=== PATIENT | male | born 1975 | race Caucasian/White ===

== ENCOUNTER 2017-06-12 21:40 | Emergency (ER) | payer BC ==
[~2017-06-12] VITALS: Ht 177.8 cm; Wt 130.0 kg
[2017-06-12 21:43] VITALS: BP 192/91; PULSE 108; RESP 24; TEMP 96.7; O2SAT 100
--- NOTE | 2017-06-12 21:50 | PD ---
HPI . left sided back pain Chief Complaint: Flank/Kidney Pain Time Seen by Provider: 21:50 Travel History International Travel<30 days: No Contact w/Intl Traveler<30days: No Traveled to known affect area: No History of Present Illness HPI 41-year-old male with history of hypertension and nephrolithiasis here with sudden onset of left-sided back pain that started about an hour ago. Patient says that he has 10/10 pain in the left lower back associated with some decreased urinary output. He does believe that he may have a kidney stone as he has had them in the past. He also reports some left-sided testicular pain that also started around the same time. He says he feels some pressure upon urinating,, however denies dysuria or penile discharge. He is accompanied by his . PFSH Past Medical History Kidney Stones: Yes Social History Alcohol Use: Yes Tobacco Use: No Allergies-Medications (Allergen,Severity, Reaction): Coded Allergies: No Known Allergies (Unverified , 06/12/17) Reported Meds & Prescriptions Reported Meds & Active Scripts Active Zofran Odt (Ondansetron Odt) 4 Mg Tab 4 Mg SL Q6HR PRN Percocet (Oxycodone-Acetaminophen) 10-325 mg Tab 1 Tab PO Q6H PRN Flomax (Tamsulosin HCl) 0.4 Mg Cap 0.4 Mg PO HS Reported Adipex-P (Phentermine HCl) 37.5 Mg Tab 19 Mg PO BID Review of Systems General / Constitutional: No: Fever Eyes: No: Visual changes HENT: No: Headaches Cardiovascular: No: Chest Pain or Discomfort Respiratory: No: Shortness of Breath Gastrointestinal: No: Abdominal Pain Genitourinary: Positive: Decreased Urinary Output, Flank Pain, No: Dysuria Musculoskeletal: No: Pain Skin: No Rash Neurologic: No: Weakness Psychiatric: No: Depression Endocrine: No: Polydipsia Hematologic/Lymphatic: No: Easy Bruising Physical Exam Narrative GENERAL: AAO x 3, moderate distress from pain, Well-nourished, well-developed patient. SKIN: Warm and dry. No visible rashes or bruising. HEAD: Normocephalic and atraumatic. EYES: No scleral icterus. No injection or drainage. EOM intact, PERRLA ENT: No nasal drainage noted. Mucous membranes pink. Airway patent. NECK: Supple, trachea midline. No JVD. CARDIOVASCULAR: Regular rate and rhythm without murmurs, gallops, or rubs. RESPIRATORY: Breath sounds equal bilaterally. No accessory muscle use. No rhonchi or rales. GASTROINTESTINAL: Abdomen soft, non-tender, nondistended. GENITAL: Done in presence of patient's : no gross abn. testicle non-tender on exam EXTREMITIES: No cyanosis or edema. BACK: CVA tenderness to the left side NEURO: CN II-12 intact, software engineer mobile strength normal b/l, UE and LE 5/5, no focal deficits PSYCH: AAO x 3, normal affect. Data Data Last Documented VS Vital Signs Date Time Temp Pulse Resp B/P Pulse Ox O2 Delivery O2 Flow Rate FiO2 06/13/17 00:50 102 20 175/100 99 Room Air 06/12/17 21:43 96.7 Orders Complete Blood Count With Diff (06/12/17 21:54) Comprehensive Metabolic Panel (06/12/17 21:54) Lipase (06/12/17 21:54) Ct Abd/Pel W/O Iv Contrast (06/12/17 21:54) Iv Access Insert/Monitor (06/12/17 21:54) Ecg Monitoring (06/12/17 21:54) Oximetry (06/12/17 21:54) Morphine Inj (Morphine Inj) (06/12/17 22:00) Sodium Chloride 0.9% Flush (Ns Flush) (06/12/17 22:00) Ketorolac Inj (Toradol Inj) (06/12/17 22:00) Us Testicles W Doppler (06/12/17 21:54) Ondansetron Inj (Zofran Inj) (06/12/17 22:00) Urinalysis - C+S If Indicated (06/12/17 22:33) Sodium Chlor 0.9% 1000 Ml Inj (Ns 1000 M (06/12/17 22:45) Ketorolac Inj (Toradol Inj) (06/12/17 23:15) Tamsulosin (Flomax) (06/12/17 23:15) Sodium Chlor 0.9% 1000 Ml Inj (Ns 1000 M (06/12/17 23:30) Hydromorphone Pf Inj (Dilaudid Pf Inj) (06/12/17 23:30) Metoclopramide Inj (Reglan Inj) (06/13/17 00:45) Labs Laboratory Tests Test 06/12/17 06/13/17 22:10 00:14 White Blood Count 15.0 TH/MM3 Red Blood Count 6.35 MIL/MM3 Hemoglobin 16.9 GM/DL Hematocrit 50.2 % Mean Corpuscular Volume 79.0 FL Mean Corpuscular Hemoglobin 26.6 PG Mean Corpuscular Hemoglobin 33.6 % Concent Red Cell Distribution Width 13.7 % Platelet Count 300 TH/MM3 Mean Platelet Volume 9.0 FL Neutrophils (%) (Auto) 64.6 % Lymphocytes (%) (Auto) 21.5 % Monocytes (%) (Auto) 10.7 % Eosinophils (%) (Auto) 2.5 % Basophils (%) (Auto) 0.7 % Neutrophils # (Auto) 9.7 TH/MM3 Lymphocytes # (Auto) 3.2 TH/MM3 Monocytes # (Auto) 1.6 TH/MM3 Eosinophils # (Auto) 0.4 TH/MM3 Basophils # (Auto) 0.1 TH/MM3 CBC Comment DIFF FINAL Differential Comment Sodium Level 140 MEQ/L Potassium Level 3.5 MEQ/L Chloride Level 102 MEQ/L Carbon Dioxide Level 26.1 MEQ/L Anion Gap 12 MEQ/L Blood Urea Nitrogen 20 MG/DL Creatinine 1.76 MG/DL Estimat Glomerular Filtration 43 ML/MIN Rate Random Glucose 142 MG/DL Calcium Level 9.5 MG/DL Total Bilirubin 2.4 MG/DL Aspartate Amino Transf 39 U/L (AST/SGOT) Alanine Aminotransferase 82 U/L (ALT/SGPT) Alkaline Phosphatase 109 U/L Total Protein 8.4 GM/DL Albumin 4.5 GM/DL Lipase 110 U/L Urine Color YELLOW Urine Turbidity CLOUDY Urine pH 6.0 Urine Specific [place] 1.034 Urine Protein 100 mg/dL Urine Glucose (UA) NEG mg/dL Urine Ketones 40 mg/dL Urine Occult Blood LARGE Urine Nitrite NEG Urine Bilirubin NEG Urine Urobilinogen 2.0 MG/DL Urine Leukocyte Esterase TRACE Urine RBC /hpf Urine WBC 6 /hpf Urine Squamous Epithelial 1 /hpf Cells Urine Calcium Oxalate Crystals RARE /hpf Urine Amorphous Sediment RARE Urine Mucus FEW /lpf Microscopic Urinalysis Comment CULT NOT INDICATED MDM Medical Decision Making Medical Screen Exam Complete: Yes Emergency Medical Condition: Yes Medical Record Reviewed: Yes Differential Diagnosis Nephrolithiasis, epididymitis, urethritis, less likely testicular torsion, Narrative Course 41-year-old male here with sudden onset of left-sided back pain. Patient does have a history of kidney stones. He appears to have a case of nephrolithiasis. Labs and imaging have been ordered. Patient given Toradol, morphine and Zofran here in the emergency department. I have discussed the case with my attending Dr. Chavez, who will determine patient's disposition. Scripts Ondansetron Odt (Zofran Odt)4 Mg Tab4 Mg SL Q6HR PRN (Nausea/Vomiting) #20 TAB Ref 0 Prov:Rashad Chavez MD 06/13/17 Oxycodone-Acetaminophen (Percocet)10-325 mg Tab1 Tab PO Q6H PRN (PAIN) #15 TAB Ref 0 Prov:Rashad Chavez MD 06/13/17 Tamsulosin (Flomax)0.4 Mg Cap0.4 Mg PO HS #14 CAP Ref 0 Prov:Rashad Chavez MD 06/13/17 Condition: Stable Darcie Benites Jun 12, 2017 21:50
[2017-06-12] MEDS ORDERED: MORPHINE SULFATE 4 MG/ML INJ IV PUSH ONE (22:00)
[2017-06-12] MEDS ORDERED: ONDANSETRON HCL 4 MG/2 ML VIAL IV PUSH ONE (22:00)
[2017-06-12] MEDS ORDERED: SODIUM CHLORIDE 0.9% FLUSH 10 ML FLUSH IV FLUSH PRN (22:00)
[2017-06-12] MEDS ORDERED: KETOROLAC TROMETHAMINE 60 MG/2 ML (IM) VIAL IM ONE (22:00)
[2017-06-12 22:39] LABS: AUTOMATED NEUTROPHIL # 9.7 TH/MM3 (1.8-7.7); BASOPHIL # 0.1 TH/MM3 (0-0.2); BASOPHIL % 0.7 % (0.0-2.0); EOSINOPHIL # 0.4 TH/MM3 (0-0.4); EOSINOPHIL % 2.5 % (0.0-4.0); HEMATOCRIT 50.2 % (39.0-51.0); HEMO FLAGS DIFF FINAL; LYMPH % 21.5 % (9.0-44.0); LYMPHOCYTE # 3.2 TH/MM3 (1.0-4.8); MEAN CORPUSCULAR HEMOGLOBIN 26.6 PG (27.0-34.0); MEAN CORPUSCULAR HGB CONC 33.6 % (32.0-36.0); MONO % 10.7 % (0.0-8.0); NEUT % 64.6 % (16.0-70.0); PLATELET COUNT 300 TH/MM3 (150-450); RED BLOOD COUNT 6.35 MIL/MM3 (4.50-5.90); RED CELL DISTRIBUTION WIDTH 13.7 % (11.6-17.2)
[2017-06-12] MEDS ORDERED: SODIUM CHLOR 0.9% 1000 ML INJ 1,000 ML IV ONE ×2 (22:45→23:30)
[2017-06-12] MEDS ORDERED: ADIP37.55 PO (22:54)
[2017-06-12 22:55] LABS: ALT (GPT) 82 U/L (12-78); ANION GAP 12 MEQ/L (5-15); AST (GOT) 39 U/L (15-37); BICARBONATE 26.1 MEQ/L (21.0-32.0); BLOOD UREA NITROGEN 20 MG/DL (7-18); CHLORIDE 102 MEQ/L (98-107); GLOMERULAR FILTRATION RATE 43 ML/MIN (>89); POTASSIUM 3.5 MEQ/L (3.5-5.1); SODIUM (NA) 140 MEQ/L (136-145)
[2017-06-12 22:57] LABS: ALKALINE PHOSPHATASE 109 U/L (45-117); TOTAL BILIRUBIN ADULT 2.4 MG/DL (0.2-1.0)
--- NOTE | 2017-06-12 22:58 | RADRPT ---
EXAM DATE/TIME: 06/12/2017 22:21 [facility] COMPARISON: No previous studies available for comparison. INDICATIONS : Testicular pain. MEDICAL HISTORY : None. SURGICAL HISTORY : None. ENCOUNTER: Initial ACUITY: 1 day PAIN SCORE: 5/10 LOCATION: Bilateral testicles. MEASUREMENTS: RIGHT TESTICLE: 4.9 x 3.3 x 2.3 cm LEFT TESTICLE: 4.9 x 3.4 x 2.5 cm cm FINDINGS: RIGHT TESTICLE: Homogeneous echotexture without intra or extratesticular mass. Blood flow is symmetric and within no rmal limits. No hydrocele or varicocele. Epididymis is within normal limits. LEFT TESTICLE: Homogeneous echotexture without intra or extratesticular mass. Blood flow is symmetric and within no rmal limits. No hydrocele or varicocele. Epididymis is within normal limits. SCROTUM: Within normal limits. CONCLUSION: Normal examination. No evidence for torsion. Abel Flowers MD on June 12, 2017 at 22:55 Board Certified Radiologist. This report was verified electronically.
[2017-06-12 23:10] VITALS: BP 173/100; PULSE 102; RESP 22; O2SAT 100
--- NOTE | 2017-06-12 23:11 | RADRPT ---
EXAM DATE/TIME: 06/12/2017 22:56 [facility] COMPARISON: US TESTICLE W/DOPPLER, June 12, 2017, 22:21. INDICATIONS : Left flank pain past 4 hours. ORAL CONTRAST: No oral contrast ingested. RADIATION DOSE: 21.31 CTDIvol (mGy) ; Patient body habitus MEDICAL HISTORY : Renal calculi. SURGICAL HISTORY : None. ENCOUNTER: Initial ACUITY: 1 day PAIN SCALE: 10/10 LOCATION: Left flank TECHNIQUE: Volumetric scanning of the abdomen and pelvis was performed. Using automated exposure control and ad justment of the mA and/or kV according to patient size, radiation dose was kept as low as reasonably achievable to obtain optimal diagnostic quality images. DICOM format image data is available electro nically for review and comparison. FINDINGS: There is hepatic steatosis. Gallbladder, right kidney, spleen, pancreas, adrenals unremarkable. There is left perinephric stranding and mild left-sided hydronephrosis. Mild left hydroureter is identifie d. There is a calculus within the distal left ureter measured 4.1 mm image 132. There is periureteral stranding. Urinary bladder, prostate, small and large bowel, appendix and stomach are normal. Tiny f at-containing umbilical hernia. Mild rectus diastasis. Lung bases are clear. Osseous structures are i ntact. CONCLUSION: 1. Fatty liver. 2. Umbilical hernia containing fat. 3. There is mild left hydronephrosis and hydroureter, perinephric and periureteral stranding identifi ed secondary to a left distal ureteral calculus. Earl Lopez MD on June 12, 2017 at 23:08 Board Certified Radiologist. This report was verified electronically.
[2017-06-12] MEDS ORDERED: KETOROLAC TROMETHAMINE 30 MG/ML (IVP) VIAL IV PUSH ONE (23:15)
[2017-06-12] MEDS ORDERED: TAMSULOSIN HCL 0.4 MG CAP PO ONE (23:15)
[2017-06-12] MEDS ORDERED: HYDROmorphone HCL PF 1 MG/ML VIAL IV PUSH ONE (23:30)
[2017-06-13 00:37] LABS: BLOOD, URINE LARGE (NEG); CALCIUM OXALATE CRYSTALS,URINE RARE /hpf; COMMENT (UR) CULT NOT INDICATED; CULTURE IF INDICATED CULT NOT INDICATED; GLUCOSE,URINE NEG (NEG); KETONE, URINE 40 mg/dL (NEG); MUCUS URINE FEW /lpf (OCC); NITRITE,URINE NEG (NEG); SQUAMOUS EPITHELIAL CELL URINE 1 /hpf (0-5); URINE COLOR YELLOW (YELLW/STRAW)
[2017-06-13] MEDS ORDERED: METOCLOPRAMIDE HCL 10 MG/2 ML VIAL IV PUSH ONE (00:45)
[2017-06-13 00:50] VITALS: BP 175/100; PULSE 102; RESP 20; O2SAT 99
[2017-06-13] MEDS ORDERED: PERC10TA27 PO (01:15)
[2017-06-13] MEDS ORDERED: TAMS5CAP PO (01:15)
[2017-06-13] MEDS ORDERED: ZOFR4TAB3 SL (01:15)
--- NOTE | 2017-06-13 01:15 | PD ---
Data Data Last Documented VS Vital Signs Date Time Temp Pulse Resp B/P Pulse Ox O2 Delivery O2 Flow Rate FiO2 06/13/17 00:50 102 20 175/100 99 Room Air 06/12/17 21:43 96.7 Orders Complete Blood Count With Diff (06/12/17 21:54) Comprehensive Metabolic Panel (06/12/17 21:54) Lipase (06/12/17 21:54) Ct Abd/Pel W/O Iv Contrast (06/12/17 21:54) Iv Access Insert/Monitor (06/12/17 21:54) Ecg Monitoring (06/12/17 21:54) Oximetry (06/12/17 21:54) Morphine Inj (Morphine Inj) (06/12/17 22:00) Sodium Chloride 0.9% Flush (Ns Flush) (06/12/17 22:00) Ketorolac Inj (Toradol Inj) (06/12/17 22:00) Us Testicles W Doppler (06/12/17 21:54) Ondansetron Inj (Zofran Inj) (06/12/17 22:00) Urinalysis - C+S If Indicated (06/12/17 22:33) Sodium Chlor 0.9% 1000 Ml Inj (Ns 1000 M (06/12/17 22:45) Ketorolac Inj (Toradol Inj) (06/12/17 23:15) Tamsulosin (Flomax) (06/12/17 23:15) Sodium Chlor 0.9% 1000 Ml Inj (Ns 1000 M (06/12/17 23:30) Hydromorphone Pf Inj (Dilaudid Pf Inj) (06/12/17 23:30) Metoclopramide Inj (Reglan Inj) (06/13/17 00:45) Labs Laboratory Tests Test 06/12/17 06/13/17 22:10 00:14 White Blood Count 15.0 TH/MM3 Red Blood Count 6.35 MIL/MM3 Hemoglobin 16.9 GM/DL Hematocrit 50.2 % Mean Corpuscular Volume 79.0 FL Mean Corpuscular Hemoglobin 26.6 PG Mean Corpuscular Hemoglobin 33.6 % Concent Red Cell Distribution Width 13.7 % Platelet Count 300 TH/MM3 Mean Platelet Volume 9.0 FL Neutrophils (%) (Auto) 64.6 % Lymphocytes (%) (Auto) 21.5 % Monocytes (%) (Auto) 10.7 % Eosinophils (%) (Auto) 2.5 % Basophils (%) (Auto) 0.7 % Neutrophils # (Auto) 9.7 TH/MM3 Lymphocytes # (Auto) 3.2 TH/MM3 Monocytes # (Auto) 1.6 TH/MM3 Eosinophils # (Auto) 0.4 TH/MM3 Basophils # (Auto) 0.1 TH/MM3 CBC Comment DIFF FINAL Differential Comment Sodium Level 140 MEQ/L Potassium Level 3.5 MEQ/L Chloride Level 102 MEQ/L Carbon Dioxide Level 26.1 MEQ/L Anion Gap 12 MEQ/L Blood Urea Nitrogen 20 MG/DL Creatinine 1.76 MG/DL Estimat Glomerular Filtration 43 ML/MIN Rate Random Glucose 142 MG/DL Calcium Level 9.5 MG/DL Total Bilirubin 2.4 MG/DL Aspartate Amino Transf 39 U/L (AST/SGOT) Alanine Aminotransferase 82 U/L (ALT/SGPT) Alkaline Phosphatase 109 U/L Total Protein 8.4 GM/DL Albumin 4.5 GM/DL Lipase 110 U/L Urine Color YELLOW Urine Turbidity CLOUDY Urine pH 6.0 Urine Specific [place] 1.034 Urine Protein 100 mg/dL Urine Glucose (UA) NEG mg/dL Urine Ketones 40 mg/dL Urine Occult Blood LARGE Urine Nitrite NEG Urine Bilirubin NEG Urine Urobilinogen 2.0 MG/DL Urine Leukocyte Esterase TRACE Urine RBC /hpf Urine WBC 6 /hpf Urine Squamous Epithelial 1 /hpf Cells Urine Calcium Oxalate Crystals RARE /hpf Urine Amorphous Sediment RARE Urine Mucus FEW /lpf Microscopic Urinalysis Comment CULT NOT INDICATED MDM Supervised Visit with [facility]: Yes Narrative Course I, Dr. Chavez, have reviewed the advance practice practitioner's documentation and am in agreement, met with the patient face to face, made the diagnosis, and the medical decision making was done by me. See her note for further details. Briefly is a 41-year-old male who is from [place], history of kidney stones, presents for evaluation of sudden onset left flank pain that radiates to his left groin. Pain is sharp, severe, feels very similar to previous kidney stones. Pain is associated with nausea and dry heaves. Vital signs reviewed. CBC shows WBC 15, hemoglobin 16.9, hematocrit 50, platelets 300. CMP is remarkable for BUN 20, cranny 1.76, GFR 43, AST 39, ALT 82. Patient does not know his baseline creatinine. UA shows large occult blood, trace ketones, trace leukocyte esterase, 6 WBCs, innumerable rbc's, not suggestive of UTI. Scrotal ultrasound: Normal exam. No evidence for torsion. CT abdomen pelvis: CONCLUSION: 1. Fatty liver. 2. Umbilical hernia containing fat. 3. There is mild left hydronephrosis and hydroureter, perinephric and periureteral stranding identified secondary to a left distal ureteral calculus. Patient was given a dose of morphine IV as well as IV Toradol and antiemetics. He was still complaining of pain. He was given a dose of Dilaudid and another dose of antiemetics. He states the pain has been intermittent, however he feels well enough to be discharged home. I did offer to admit him for further pain management, however he prefers to go home. He will be discharged home with a prescription for Flomax, Percocet, and Zofran. He is returning to [place] at the end of the week and has a urologist where he will follow-up when he returns. He was informed on when to return to the emergency department. He verbalizes understanding and agreement with plan. Diagnosis Primary Impression: Ureterolithiasis Referrals: Urologist 1 week Additional Instruction: Follow-up with your urologist when you return to [place] next week. Return to the emergency department for worsening symptoms or any other concerns. Scripts Ondansetron Odt (Zofran Odt)4 Mg Tab4 Mg SL Q6HR PRN (Nausea/Vomiting) #20 TAB Ref 0 Prov:Rashad Chavez MD 06/13/17 Oxycodone-Acetaminophen (Percocet)10-325 mg Tab1 Tab PO Q6H PRN (PAIN) #15 TAB Ref 0 Prov:Rashad Chavez MD 06/13/17 Tamsulosin (Flomax)0.4 Mg Cap0.4 Mg PO HS #14 CAP Ref 0 Prov:Rashad Chavez MD 06/13/17 Disposition: DISCHARGE HOME Condition: Stable Rashad Chavez MD Jun 13, 2017 01:15
== END 2017-06-13 01:25 | disposition home or self-care (01) ==
LOC: NEPE 21:40
DX: N20.1 Calculus of ureter (principal)
CPT/HCPCS: 74176; 76870; 80053; 81001; 83690; 85025; 93975; 96361; 96374; 96375; 99285; J1170; J1885; J2270; J2405; J2765; J7030